=== PATIENT | male | born 1970 | race Two or more races ===

== ENCOUNTER 2021-04-15 09:27 | Inpatient (IN) | payer OTHER ==
[2021-04-15 10:04] VITALS: BMI 20.9
[2021-04-15] MEDS ORDERED: ACETAMINOPHEN 325 MG TABLET (FP) PO PRN ×2 (10:41)
[2021-04-15] MEDS ORDERED: cloNIDine HCL 0.1 MG TABLET PO PRN (10:41)
[2021-04-15] MEDS ORDERED: MAGNESIUM HYDROX 2400MG/30ML ORAL SUSPENSION 30 ML CUP PO PRN (10:41)
[2021-04-15] MEDS ORDERED: IBUPROFEN 400 MG TABLET (FP) PO PRN (10:41)
[2021-04-15] MEDS ORDERED: ONDANSETRON *ODT* 4 MG TABLET SL PRN (10:41)
[2021-04-15] MEDS ORDERED: BISMUTH SUBSALICYLATE 262 MG/15 ML BTL PO PRN (10:41)
[2021-04-15] MEDS ORDERED: MAG HYDROX/AL HYDROX/SIMETH 30 ML UNIT-DOSE CUP PO PRN (10:41)
[2021-04-15] MEDS ORDERED: NICOTINE POLACRILEX 2 MG GUM BUC PRN (10:41)
[2021-04-15] MEDS ORDERED: methaDONE HCL 10 MG TABLET (FOR DETOX USE ONLY) PO ONE (10:41)
[2021-04-15] MEDS ORDERED: MAGNESIUM CITRATE 300 ML BOTTLE PO PRN (10:41)
[2021-04-15] MEDS ORDERED: MENTHOL/PHENOL 1 EACH UD MM PRN (10:41)
[2021-04-15] MEDS: METHOCARBAMOL 500 MG TABLET PO PRN (12:15)
[2021-04-15] MEDS: NICOTINE 14 MG/24 HOURS TOPICAL PATCH TD SCH (12:15)
[2021-04-15] MEDS: PRENATAL VITAMINS W/ FOLIC ACID TABLET (FP) PO SCH (12:16)
[2021-04-15 12:43] LABS: HEMOGLOBIN 13.7 GM/dL (11.7-16.9); MCH 30.2 pg (25.7-33.7); MCHC 34.3 g/dl (32.0-35.9); MEAN CELL VOLUME 88.1 fl (80-96); MEAN PLT VOLUME 7.1 fl (7.5-11.1); PLATELET COUNT 359 10^3/uL (134-434); RBC 4.54 M/mm3 (4.00-5.60); RDW 13.8 % (11.9-15.9)
[2021-04-15 12:52] LABS: ALBUMIN 3.8 g/dl (3.4-5.0)
[2021-04-15 13:03] LABS: BLOOD UREA NITROGEN 20.8 mg/dL (7-18)
[2021-04-15 13:05] LABS: BILIRUBIN,TOTAL 0.4 mg/dL (0.2-1); CREATININE 1.4 mg/dL (0.55-1.3); TOT PROT 7.6 g/dl (6.4-8.2)
[2021-04-15] MEDS: hydrOXYzine PAMOATE 25 MG CAPSULE (FP) PO SCH ×3 (14:20→23:04)
[2021-04-15] MEDS: THIAMINE HCL 100 MG TABLET (FP) PO SCH (23:04)
[2021-04-15] MEDS: MELATONIN 5 MG TABLETS PO SCH (23:04)
[2021-04-16] MEDS: hydrOXYzine PAMOATE 25 MG CAPSULE (FP) PO SCH ×2 (05:40→10:20)
[2021-04-16] MEDS: METHOCARBAMOL 500 MG TABLET PO PRN (05:45)
[2021-04-16] MEDS ORDERED: methaDONE HCL 10 MG TABLET (FOR DETOX USE ONLY) ONE (09:46)
[2021-04-16] MEDS: PRENATAL VITAMINS W/ FOLIC ACID TABLET (FP) PO SCH (10:21)
[2021-04-16] MEDS: NICOTINE 14 MG/24 HOURS TOPICAL PATCH TD SCH (10:21)
[2021-04-16] MEDS ORDERED: hydrOXYzine PAMOATE 25 MG CAPSULE (FP) PO PRN (10:31)
[2021-04-16] MEDS: THIAMINE HCL 100 MG TABLET (FP) PO SCH (22:39)
[2021-04-16] MEDS: MELATONIN 5 MG TABLETS PO SCH (22:40)
[2021-04-17] MEDS ORDERED: methaDONE HCL 10 MG TABLET (FOR DETOX USE ONLY) PO ONE (10:00)
[2021-04-17] MEDS: NICOTINE 14 MG/24 HOURS TOPICAL PATCH TD SCH (10:12)
[2021-04-17] MEDS: METHOCARBAMOL 500 MG TABLET PO PRN (10:13)
[2021-04-17] MEDS: PRENATAL VITAMINS W/ FOLIC ACID TABLET (FP) PO SCH (10:13)
[2021-04-17] MEDS: LIDOCAINE 5% TOPICAL PATCH TP SCH (10:17)
[2021-04-17 13:34] LABS: BLOOD UREA NITROGEN 12.5 mg/dL (7-18)
[2021-04-17] MEDS ORDERED: LIDOCAINE PATCH REMOVAL MC SCH (22:00)
[2021-04-17] MEDS: MELATONIN 5 MG TABLETS PO SCH (22:36)
[2021-04-17] MEDS: THIAMINE HCL 100 MG TABLET (FP) PO SCH (22:36)
[2021-04-18] MEDS ORDERED: methaDONE HCL 10 MG TABLET (FOR DETOX USE ONLY) ONE (09:46)
[2021-04-18 09:53] VITALS: BP 104/68; PULSE 68; TEMP 96.8
[2021-04-18] MEDS ORDERED: cloNIDine HCL 0.1 MG TABLET PO PRN (10:08)
[2021-04-18] MEDS: PRENATAL VITAMINS W/ FOLIC ACID TABLET (FP) PO SCH (10:23)
[2021-04-18] MEDS: LIDOCAINE 5% TOPICAL PATCH TP SCH (10:23)
[2021-04-18] MEDS: METHOCARBAMOL 500 MG TABLET PO PRN (10:23)
[2021-04-18] MEDS: NICOTINE 14 MG/24 HOURS TOPICAL PATCH TD SCH (10:25)
[2021-04-19] MEDS ORDERED: methaDONE HCL 10 MG TABLET (FOR DETOX USE ONLY) PO ONE (10:00)
== END 2021-04-18 12:45 | disposition left against medical advice (07) | DRG 770 ==
LOC: YASAS 09:27 → Y3N 10:24
PROVIDERS: ADMIT Allergy & Immunology; ATTEND Allergy & Immunology
PROC: HZ2ZZZZ Detoxification Services for Substance Abuse Treatment (ICD-10-PCS; principal; 2021-04-15)
DX: F11.23 Opioid dependence with withdrawal (principal); F10.230 Alcohol dependence with withdrawal, uncomplicated; F14.20 Cocaine dependence, uncomplicated; F12.20 Cannabis dependence, uncomplicated; F17.210 Nicotine dependence, cigarettes, uncomplicated; M54.5 Low back pain; M79.671 Pain in right foot; Z88.0 Allergy status to penicillin; Z59.0 Homelessness
CPT/HCPCS: 36415; 80053; 82565; 84520; 85027; 86780; 93005; 93010; C9803; J0735; Q0162; U0003; U0005

== ENCOUNTER 2023-02-04 12:25 | Inpatient (IN) | payer OTHER ==
[2023-02-04 17:30] VITALS: BMI 21.6
[2023-02-04] MEDS ORDERED: NICOTINE 7 MG/24 HOURS TOPICAL PATCH TD PRN (19:16)
[2023-02-04] MEDS ORDERED: BENZOCAINE/MENTHOL (CHLORASEPTIC ) LOZENGE MM PRN (19:16)
[2023-02-04] MEDS ORDERED: BENZONATATE 200 MG CAPSULE PO PRN (19:16)
[2023-02-04] MEDS ORDERED: guaiFENesin 600 MG TABLET.ER (FP) PO PRN (19:16)
[2023-02-04] MEDS ORDERED: MAGNESIUM HYDROX 2400MG/30ML ORAL SUSPENSION 30 ML CUP PO PRN (19:16)
[2023-02-04] MEDS ORDERED: DICYCLOMINE HCL 10 MG CAPSULE PO PRN (19:16)
[2023-02-04] MEDS ORDERED: BISMUTH SUBSALICYLATE 524 MG/30 ML PO PRN (19:16)
[2023-02-04] MEDS ORDERED: ACETAMINOPHEN 325 MG TABLET (FP) PO PRN (19:16)
[2023-02-04] MEDS ORDERED: NALOXONE HCL (KLOXXADO) 8 MG SPRAY NS PRN (19:16)
[2023-02-04] MEDS ORDERED: NICOTINE POLACRILEX 2 MG GUM BUC PRN (19:16)
[2023-02-04] MEDS ORDERED: METHOCARBAMOL 500 MG TABLET PO PRN (19:16)
[2023-02-04] MEDS ORDERED: POLYETHYLENE GLYCOL (HEALTHYLAX) 3350 17 GM PACKET PO PRN (19:16)
[2023-02-04] MEDS ORDERED: MAG HYDROX/AL HYDROX/SIMETH 30 ML UNIT-DOSE CUP PO PRN (19:16)
[2023-02-04] MEDS ORDERED: ONDANSETRON *ODT* 4 MG TABLET SL PRN (19:16)
[2023-02-04] MEDS ORDERED: NALOXONE HCL 0.4 MG/ML VIAL IM PRN (19:16)
[2023-02-04] MEDS ORDERED: LOPERAMIDE HCL 2 MG CAPSULE PO PRN (19:16)
[2023-02-04] MEDS ORDERED: IBUPROFEN 400 MG TABLET (FP) PO PRN (19:16)
[2023-02-04] MEDS ORDERED: P-EPHED 60MG/TRIPROLIDI 2.5MG TABLET PO PRN (19:16)
[2023-02-04] MEDS ORDERED: MELATONIN 5 MG TABLETS PO SCH (22:00)
[2023-02-04] MEDS: THIAMINE HCL 100 MG TABLET (FP) PO SCH (22:46)
[2023-02-04] MEDS: BACITRACIN 0.9 GM PACKET TP SCH (22:46)
[2023-02-05] MEDS: IBUPROFEN 600 MG TABLET (FP) PO PRN (08:03)
[2023-02-05] MEDS: ONDANSETRON *ODT* 4 MG TABLET SL PRN (08:32)
[2023-02-05] MEDS ORDERED: methaDONE HCL 10 MG TABLET (FOR DETOX USE ONLY) PO ONE (10:00)
[2023-02-05] MEDS: PRENATAL VITAMINS W/ FOLIC ACID TABLET (FP) PO SCH (10:03)
[2023-02-05] MEDS: BACITRACIN 0.9 GM PACKET TP SCH (10:03)
[2023-02-05] MEDS: DOXYCYCLINE HYCLATE 100 MG CAPSULE PO SCH ×2 (10:59→17:19)
[2023-02-05] MEDS: cloNIDine HCL 0.1 MG TABLET PO PRN (16:05)
[2023-02-05] MEDS: diazePAM 5 MG TABLET PO PRN ×2 (17:20→22:43)
[2023-02-05] MEDS ORDERED: SUVOREXANT 10 MG TABLET PO PRN (22:00)
[2023-02-05] MEDS: THIAMINE HCL 100 MG TABLET (FP) PO SCH (22:43)
[2023-02-06] MEDS: ONDANSETRON *ODT* 4 MG TABLET SL PRN (04:45)
[2023-02-06] MEDS: diazePAM 5 MG TABLET PO PRN ×2 (04:51→10:14)
[2023-02-06] MEDS: IBUPROFEN 600 MG TABLET (FP) PO PRN (04:52)
[2023-02-06 06:04] VITALS: RESP 18
[2023-02-06] MEDS: cloNIDine HCL 0.1 MG TABLET PO PRN ×2 (08:24→13:25)
[2023-02-06] MEDS ORDERED: methaDONE HCL 10 MG TABLET (FOR DETOX USE ONLY) PO ONE (10:00)
[2023-02-06] MEDS: BACITRACIN 0.9 GM PACKET TP SCH (10:11)
[2023-02-06] MEDS: PRENATAL VITAMINS W/ FOLIC ACID TABLET (FP) PO SCH (10:11)
[2023-02-06] MEDS: DOXYCYCLINE HYCLATE 100 MG CAPSULE PO SCH (12:10)
[2023-02-06 13:05] VITALS: BP 96/60; PULSE 72; TEMP 96.9
== END 2023-02-06 14:29 | disposition home or self-care (01) | DRG 773 ==
LOC: YASAS 12:25 → Y6N 19:45
PROVIDERS: ADMIT Allergy & Immunology; ATTEND Surgery
PROC: HZ2ZZZZ Detoxification Services for Substance Abuse Treatment (ICD-10-PCS; principal; 2023-02-04)
DX: F11.23 Opioid dependence with withdrawal (principal); F14.20 Cocaine dependence, uncomplicated; F17.210 Nicotine dependence, cigarettes, uncomplicated; F19.282 Other psychoactive substance dependence with psychoactive substance-induced sleep disorder; F19.280 Other psychoactive substance dependence with psychoactive substance-induced anxiety disorder; L03.113 Cellulitis of right upper limb; M54.50 Low back pain, unspecified; G89.29 Other chronic pain; Z28.310 Unvaccinated for COVID-19; Z28.9 Immunization not carried out for unspecified reason; Z88.0 Allergy status to penicillin
CPT/HCPCS: 0241U-QW; 36415; 71045-TC-FY; 73130-TC-RT-FY; 73201-TC-RT; 80048; 80053; 83735; 84100; 85025; 85610; 85651; 85730; 86140; 86850; 86900; 86901; 87040; 87077; 87081; 93005; 93010; G0378; Q0162; Q9967